=== PATIENT | female | born 1940 | race Caucasian/White ===

== ENCOUNTER → 2022-09-03 | Outpatient (CLI) | payer MEDICARE ==
--- NOTE | 2022-09-06 05:39 | PE ---
EXAMINATION TYPE: PET CT fusion skull to thigh DATE OF EXAM: 09/03/2022 COMPARISON: NONE HISTORY: Alzheimer's dementia. TECHNIQUE: Following the intravenous administration of 9.42 mCi of F-18 FDG, whole body images are p erformed of the entire head. Images are reviewed on the computer in the coronal, axial, and sagittal planes. Reconstructed rotating images are created on independent workstation and reviewed on the Dot[employer] mputer. Blood glucose level =100. SCAN: Initial Scan FINDINGS: Head: Symmetric diminished radiotracer uptake involving the bilateral temporal lobes with additional slight diminished radiotracer uptake involving right frontal lobe. IMPRESSION: Findings could be product of Alzheimer's dementia but no significant diminished radiotrac er uptake in the parietal lobes is seen. Frontotemporal dementia is in the differential.
== END | disposition home or self-care (01) ==
LOC: RADPETMAIN 07:58
PROVIDERS: ATTEND Internal Medicine
DX: G30.9 Alzheimer's disease, unspecified (principal); F02.80 Dementia in other diseases classified elsewhere, unspecified severity, without behavioral disturbance, psychotic disturbance, mood disturbance, and anxiety
CPT/HCPCS: 78815; A9552

== ENCOUNTER → 2022-10-06 | Outpatient (CLI) | payer MEDICARE ==
--- NOTE | 2022-10-07 20:02 | BD ---
EXAMINATION TYPE: Axial Bone Density DATE OF EXAM: 10/06/2022 CLINICAL HISTORY: 82 years old Female. ICD-10 CODE: M85.851 OSTEOPENIA Height: 57 in Weight: 112 lbs FRAX RISK QUESTIONS: History of Fracture in Adulthood: rt humerus age 20; rt foot age 20; lt patella age 26; rt wrist age 41 RISK FACTORS HISTORY OF: History of Wrist Fracture: yes rt wrist When: age 41 Active: yes Postmenopausal woman: age 57 Lost more than 2 inches in height since high school: 3 3'4 " MEDICATIONS: Additional Medications: vit d, blood pressure meds, EXAM MEASUREMENTS: Bone mineral densitometry was performed using the [employer]uberance System. Bone mineral density as measured about the Lumbar spine is: ----- L1-L4(G/cm2): 1.030 T Score Values are as follows: ----- L1: -2.0 ----- L2: -1.8 ----- L3: -1.0 ----- L4: -0.7 ----- L1-L4: -1.3 Z Score Values are as follows: ----- L1: 0.4 ----- L2: 0.5 ----- L3: 1.3 ----- L4: 1.7 ----- L1-L4: 1.1 Bone mineral density baseline Bone mineral density about the R hip (g/cm2): 0.689 Bone mineral density about the L hip (g/cm2): 0.701 T Score values are as follows: -----R Neck: -1.7 -----L Neck: -2.2 -----R Total: -2.5 -----L Total: -2.4 Z Score values are as follows: -----R Neck: 0.8 -----L Neck: 0.3 -----R Total: -0.1 -----L Total: 0.0 Bone mineral density baseline FRAX%s: The graph provided illustrates a 23.8% chance for a major osteoporotic fx and a 7.2% chance f or the hips probability for fx in 10 years time. IMPRESSION: Osteoporosis (T Score less than -2.5). There is increased fracture risk and therapy is usually indicated based on age. Re-Screen 1-2 years. NOTE: T-SCORE=SD OF THE YOUNG ADULT MEAN.
--- NOTE | 2022-10-07 21:09 | MM ---
Reason for Exam: Screening (asymptomatic). Patient History: Menarche at age 12. First Full-Term at age 19. Postmenopausal. Risk Values: Suzy 5 year model risk: 1.3%. NCI Lifetime model risk: 1.8%. Tissue Density: The breast tissue is heterogeneously dense. This may lower the sensitivity of mammography. Findings: Analyzed By CAD. Benign bilateral oil cyst calcifications. There is no suspicious group of microcalcifications or new suspicious mass in either breast. Overall Assessment: Benign, BI-RAD 2 Management: Screening Mammogram of both breasts in 1 year. . Patient should continue monthly self-breast exams. A clinical breast exam by your physician is recommended on an annual basis. This exam should not preclude additional follow-up of suspicious palpable abnormalities. Note on Suzy scores and lifetime risk: 1. A Suzy score greater than 3% is considered moderate risk. If this is the case, consider specialist referral to assess eligibility for a risk reducing agent. 2. If overall lifetime risk for the development of breast cancer is 20% or higher, the patient may qualify for future screening with alternating mammogram and breast MRI. Electronically signed and approved by: Zayra Logan M.D. Radiologist
== END | disposition home or self-care (01) ==
LOC: RADBDWWP 15:00
PROVIDERS: ATTEND Internal Medicine
DX: Z12.31 Encounter for screening mammogram for malignant neoplasm of breast (principal); M81.0 Age-related osteoporosis without current pathological fracture; M85.89 Other specified disorders of bone density and structure, multiple sites; Z78.0 Asymptomatic menopausal state
CPT/HCPCS: 77063; 77067; 77080

== ENCOUNTER 2023-05-03 11:44 | Emergency (ER) | payer MEDICARE ==
[2023-05-03 12:30] LABS: Basophils % (A) 0 %; Eosinophils # (A) 0.1 k/uL (0-0.7); Eosinophils % (A) 1 %; HCT 37.6 % (34.0-46.0); HGB 12.4 gm/dL (11.4-16.0); Lymphocytes # (A) 1.3 k/uL (1.0-4.8); Lymphocytes % (A) 17 %; MCH 30.4 pg (25.0-35.0); MCHC 32.8 g/dL (31.0-37.0); MCV 92.7 fL (80.0-100.0); Mean Platelet Volume 7.7; Monocytes # (A) 0.4 k/uL (0-1.0); Monocytes % (A) 5 %; Neutrophils # (A) 5.8 k/uL (1.3-7.7); Neutrophils % (A) 76 %; Platelet Count 203 k/uL (150-450); RBC 4.06 m/uL (3.80-5.40); RDW 13.3 % (11.5-15.5); WBC 7.7 k/uL (3.8-10.6)
[2023-05-03 12:39] LABS: Partial Thromboplastin Time 24.3 sec (22.0-30.0); Prothrombin Time 10.6 sec (10.0-12.5)
--- NOTE | 2023-05-03 12:53 | ED ---
Recheck HPI - General Chief Complaint: Recheck/Abnormal Lab/Rx Stated Complaint: HTN Time Seen by Provider: 05/03/23 12:25 Source: patient, RN notes reviewed, old records reviewed, Caregiver Mode of arrival: ambulatory Limitations: no limitations - History of Present Illness Initial Comments: This is a 82-year-old female to the emergency department for evaluation of weakness otherwise not feeling well. Patient is a poor historian but states that she has hasn't been feeling well or feeling herself lately she is taking medication as prescribed a blood pressures been elevated. No headache chest pain shortness breath or abdominal pain no other significant findings prior to arrival. Patient is recent fever or illness no travel history or sick contacts MD Complaint: other -: days(s) Returns Today for: persistent/worsening pain related to initial visit Symptoms Since Prior Visit: worsening pain Associated Symptoms: none Treatments Prior to Arrival: other (0) - Related Data Home Medications Medication Instructions Recorded Confirmed Multivitamins, Thera [Multivitamin 1 tab PO BID 03/02/16 05/13/23 (formulary)] Aspirin [Catahoula Aspirin EC] 81 mg PO DAILY 05/13/23 05/13/23 Atorvastatin [Lipitor] 20 mg PO DAILY 05/13/23 05/13/23 Calcium Carbonate [Calcium] 600 mg PO DAILY 05/13/23 05/13/23 Cholecalciferol [Vitamin D3 (25 25 mcg PO DAILY 05/13/23 05/13/23 Mcg = 1000 Iu)] Cyanocobalamin (Vitamin B-12) 1,000 mcg PO DAILY 05/13/23 05/13/23 [Vitamin B-12] Ginkgo Biloba [place] Extract [Ginkgo 125 mg PO DAILY 05/13/23 05/13/23 Biloba] Previous Rx's Medication Instructions Recorded amLODIPine [Norvasc] 5 mg PO DAILY #30 tab 05/14/23 Allergies Allergy/AdvReac Type Severity Reaction Status Date / Time ciprofloxacin [From Cipro] AdvReac Possibly Verified 05/13/23 13:40 SJS levofloxacin [From Levaquin] AdvReac Possibly Verified 05/13/23 13:40 SJS Sulfa (Sulfonamide AdvReac Possibly Verified 05/13/23 13:40 Antibiotics) SJS Review of Systems ROS Statement: Those systems with pertinent positive or pertinent negative responses have been documented in the HPI. ROS Other: All systems not noted in ROS Statement are negative. Past Medical History Past Medical History: Diabetes Mellitus, Hypertension, Mitral Valve Prolapse (M SUGAR CANE GROWER) Additional Past Medical History / Comment(s): glaucoma, rheumatic fever History of Any Multi-Drug Resistant Organisms: None Reported Past Surgical History: Tubal Ligation Past Psychological History: No Psychological Hx Reported Smoking Status: Never smoker Past Alcohol Use History: Occasional Past Drug Use History: None Reported General Exam Limitations: no limitations General appearance: alert, in no apparent distress, anxious Head exam: Present: atraumatic, normocephalic, normal inspection Eye exam: Present: normal appearance, PERRL, EOMI. Absent: scleral icterus, conjunctival injection, periorbital swelling ENT exam: Present: normal exam, mucous membranes moist Neck exam: Present: normal inspection. Absent: tenderness, meningismus, lymphadenopathy Respiratory exam: Present: normal lung sounds bilaterally. Absent: respiratory distress, wheezes, rales, rhonchi, stridor Cardiovascular Exam: Present: regular rate, normal rhythm, normal heart sounds. Absent: systolic murmur, diastolic murmur, rubs, gallop, clicks GI/Abdominal exam: Present: soft, normal bowel sounds. Absent: distended, tenderness, guarding, rebound, rigid Extremities exam: Present: normal inspection, full ROM, normal capillary refill. Absent: tenderness, pedal edema, joint swelling, calf tenderness Back exam: Present: normal inspection Neurological exam: Present: alert, oriented X3, CN II-XII intact Psychiatric exam: Present: normal affect, normal mood Skin exam: Present: warm, dry, intact, normal color. Absent: rash Course Vital Signs 05/03/23 05/03/23 05/03/23 11:53 13:27 15:05 Temperature 98 F 98.1 F Pulse Rate 67 69 73 Respiratory 20 16 16 Rate Blood Pressure 190/67 192/89 166/88 O2 Sat by Pulse 97 98 97 Oximetry - Reevaluation(s) Reevaluation #1: Medical records reviewed Reevaluation #2: Patient symptoms are unchanged Reevaluation #3: Patient informed results and questions answered Reevaluation #4: Was pt. sent in by a medical professional or institution (, PA, LACE PAPER MACHINE OPERATOR, urgent care, hospital, or penitentiary...) When possible be specific @ -no Did you speak to anyone other than the patient for history (EMS, parent, family, police, friend...)? What history was obtained from this source @ -no Did you review nursing and triage notes (agree or disagree)? Why? @ -agree Are old charts reviewed (outside hosp., previous admission, EMS record, old EKG, old radiological studies, urgent care reports/EKG's, penitentiary records)? Report findings @ -yes Differential Diagnosis (chest pain, altered mental status, abdominal pain women, abdominal pain men, vaginal bleeding, weakness, fever, dyspnea, syncope, headache, dizziness, GI bleed, back pain, seizure, CVA, palpatations, mental health, musculoskeletal)? @ -prior EKG interpreted by me (3pts min.). @ -yes X-rays interpreted by me (1pt min.). @ -no CT interpreted by me (1pt min.). @ -no U/S interpreted by me (1pt. min.). @ -no What testing was considered but not performed or refused? (CT, X-rays, U/S, labs)? Why? @ -none What meds were considered but not given or refused? Why? @ -none Did you discuss the management of the patient with other professionals (professionals i.e. , PA, LACE PAPER MACHINE OPERATOR, lab, RT, psych nurse, nursing home social worker, behaviorist, teacher, aoc operations intelligence officer, director of casework services)? Give summary @ -no Was smoking cessation discussed for >3mins.? @ -no Was critical care preformed (if so, how long)? @ -no Were there social determinants of health that impacted care today? How? (Homelessness, low income, unemployed, alcoholism, drug addiction, transportation, low edu. Level, literacy, decrease access to med. care, [facility], rehab)? @ -none Was there de-escalation of care discussed even if they declined (Discuss DNR or withdrawal of care, Hospice)? DNR status @ -no What co-morbidities impacted this encounter? (DM, HTN, Smoking, COPD, CAD, Cancer, CVA, ARF, Chemo, Hep., AIDS, mental health diagnosis, sleep apnea, morbid obesity)? @ -none Was patient admitted / discharged? Hospital course, mention meds given and route, prescriptions, significant lab abnormalities, going to OR and other pertinent info. @ - 82 female to the emergency department for evaluation of severe weakness and noted to have elevated blood pressure. Patient blood pressures improved here in the ER is in no acute distress and can be discharged home Discharge Undiagnosed new problem with uncertain prognosis? @ -no Drug Therapy requiring intensive monitoring for toxicity (Heparin, Nitro, Insulin, Cardizem)? @ -no Were any procedures done? @ -no Diagnosis/symptom? @ -Weakness and hypertension Acute, or Chronic, or Acute on Chronic? @ -Acute Uncomplicated (without systemic symptoms) or Complicated (systemic symptoms)? @ -Complicated Side effects of treatment? @ -no Exacerbation, Progression, or Severe Exacerbation? @ -exacerbation Poses a threat to life or bodily function? How? (Chest pain, USA, IL, pneumonia, PE, COPD, DKA, ARF, appy, cholecystitis, CVA, Diverticulitis, Homicidal, Suicida l, threat to staff... and all critical care pts) @ -yes significant extremity H Reevaluation #5: Differential Weakness: Hypoglycemia, shock, sepsis, hyponatremia, anemia, infection, IL, ETOH, adverse medicine reaction, overdose, stroke, this is not meant to be an all-inclusive list. Medical Decision Making - Medical Decision Making 82 female to the emergency department for evaluation of severe weakness and noted to have elevated blood pressure. Patient blood pressures improved here in the ER is in no acute distress and can be discharged home - Lab Data Result diagrams: 05/03/23 12:27 05/03/23 12:27 Lab Results 05/03/23 05/03/23 05/03/23 Range/Units 12:27 12:27 12:27 WBC 7.7 (3.8-10.6) k/uL RBC 4.06 (3.80-5.40) m/uL Hgb 12.4 (11.4-16.0) gm/dL Hct 37.6 (34.0-46.0) % MCV 92.7 (80.0-100.0) fL MCH 30.4 (25.0-35.0) pg MCHC 32.8 (31.0-37.0) g/dL RDW 13.3 (11.5-15.5) % Plt Count 203 (150-450) k/uL MPV 7.7 Neutrophils % 76 % Lymphocytes % 17 % Monocytes % 5 % Eosinophils % 1 % Basophils % 0 % Neutrophils # 5.8 (1.3-7.7) k/uL Lymphocytes # 1.3 (1.0-4.8) k/uL Monocytes # 0.4 (0-1.0) k/uL Eosinophils # 0.1 (0-0.7) k/uL Basophils # 0.0 (0-0.2) k/uL PT 10.6 (10.0-12.5) sec INR 1.0 (<1.2) APTT 24.3 (22.0-30.0) sec Sodium 141 (137-145) mmol/L Potassium 4.2 (3.5-5.1) mmol/L Chloride 105 (98-107) mmol/L Carbon Dioxide 26 (22-30) mmol/L Anion Gap 10 mmol/L BUN 26 H (7-17) mg/dL Creatinine 0.63 (0.52-1.04) mg/dL Est GFR (CKD-EPI)AfAm >90 (>60 ml/min/1.73 sqM) Est GFR (CKD-EPI)NonAf 84 (>60 ml/min/1.73 sqM) Glucose 118 H (74-99) mg/dL Calcium 9.6 (8.4-10.2) mg/dL Phosphorus 3.8 (2.5-4.5) mg/dL Magnesium 2.1 (1.6-2.3) mg/dL Total Bilirubin 0.5 (0.2-1.3) mg/dL AST 26 (14-36) U/L ALT 16 (4-34) U/L Alkaline Phosphatase 52 (38-126) U/L Troponin I (0.000-0.034) ng/mL NT-Pro-B Natriuret Pep 187 pg/mL Total Protein 6.4 (6.3-8.2) g/dL Albumin 3.8 (3.5-5.0) g/dL TSH 1.110 (0.465-4.680) mIU/L 05/03/23 Range/Units 12:27 WBC (3.8-10.6) k/uL RBC (3.80-5.40) m/uL Hgb (11.4-16.0) gm/dL Hct (34.0-46.0) % MCV (80.0-100.0) fL MCH (25.0-35.0) pg MCHC (31.0-37.0) g/dL RDW (11.5-15.5) % Plt Count (150-450) k/uL MPV Neutrophils % % Lymphocytes % % Monocytes % % Eosinophils % % Basophils % % Neutrophils # (1.3-7.7) k/uL Lymphocytes # (1.0-4.8) k/uL Monocytes # (0-1.0) k/uL Eosinophils # (0-0.7) k/uL Basophils # (0-0.2) k/uL PT (10.0-12.5) sec INR (<1.2) APTT (22.0-30.0) sec Sodium (137-145) mmol/L Potassium (3.5-5.1) mmol/L Chloride (98-107) mmol/L Carbon Dioxide (22-30) mmol/L Anion Gap mmol/L BUN (7-17) mg/dL Creatinine (0.52-1.04) mg/dL Est GFR (CKD-EPI)AfAm (>60 ml/min/1.73 sqM) Est GFR (CKD-EPI)NonAf (>60 ml/min/1.73 sqM) Glucose (74-99) mg/dL Calcium (8.4-10.2) mg/dL Phosphorus (2.5-4.5) mg/dL Magnesium (1.6-2.3) mg/dL Total Bilirubin (0.2-1.3) mg/dL AST (14-36) U/L ALT (4-34) U/L Alkaline Phosphatase (38-126) U/L Troponin I <0.012 (0.000-0.034) ng/mL NT-Pro-B Natriuret Pep pg/mL Total Protein (6.3-8.2) g/dL Albumin (3.5-5.0) g/dL TSH (0.465-4.680) mIU/L - EKG Data -: EKG Interpreted by Me (EKG shows sinus 65 KS 156 QRS 84 QTc 404) Disposition Clinical Impression: Weakness, Hypertension Disposition: HOME SELF-CARE Condition: Good Instructions (If sedation given, give patient instructions): Weakness (ED), Hypertension (ED) Is patient prescribed a controlled substance at d/c from ED?: No Referrals: Baltazar Greenberg MD [Primary Care Provider] - 1-2 days Time of Disposition: 14:10
[2023-05-03 12:58] LABS: ALT 16 U/L (4-34); AST 26 U/L (14-36); African American GFR (CKD) >90 (>60 ml/min/1.73 sqM); Albumin 3.8 g/dL (3.5-5.0); Alkaline Phosphatase 52 U/L (38-126); Anion Gap 10 mmol/L; Blood Urea Nitrogen 26 mg/dL (7-17); Calcium 9.6 mg/dL (8.4-10.2); Carbon Dioxide 26 mmol/L (22-30); Chloride 105 mmol/L (98-107); Glucose 118 mg/dL (74-99); Magnesium 2.1 mg/dL (1.6-2.3); Non-African American GFR(CKD) 84 (>60 ml/min/1.73 sqM); Phosphorus 3.8 mg/dL (2.5-4.5); Potassium 4.2 mmol/L (3.5-5.1); Sodium 141 mmol/L (137-145); Total Bilirubin 0.5 mg/dL (0.2-1.3); Total Protein 6.4 g/dL (6.3-8.2)
[2023-05-03 13:05] LABS: NT-Pro-B-Type Natriuretic Pept 187 pg/mL
[2023-05-03 13:39] VITALS: RESP 16; TEMP 98.1
[2023-05-03] MEDS ORDERED: LABETALOL 5 MG/ML VIAL MDV IVP STA (14:13)
[2023-05-03 20:15] VITALS: BP 166/88; PULSE 73
== END 2023-05-03 15:05 | disposition home or self-care (01) ==
LOC: EC 11:44
DX: I10 Essential (primary) hypertension (principal); R53.1 Weakness; E11.9 Type 2 diabetes mellitus without complications; Z79.82 Long term (current) use of aspirin; Z88.1 Allergy status to other antibiotic agents; Z88.2 Allergy status to sulfonamides
CPT/HCPCS: 36415; 93005; 83880; 80053; 83735; 84100; 84443; 84484; 85025; 85610; 85730; 99284; 96374; J1920

== ENCOUNTER 2023-05-13 09:56 | Observation (INO) | payer MEDICARE ==
--- NOTE | 2023-05-13 11:05 | ED ---
Dizziness HPI - General Chief Complaint: Dizziness Stated Complaint: Constipation Time Seen by Provider: 05/13/23 10:11 Source: patient, EMS Mode of arrival: EMS - History of Present Illness Initial Comments: 82-year-old female past medical history significant for TIA presenting to the emergency department with a chief complaint of lightheadedness. Per patient, was standing today when she noted that she felt generally fatigued. Due to this felt as if she needed to sit down. While sitting down patient reports that she started to ill as if she was going to pass out. Patient subsequently had an episode where she became less responsive. Per family, noted that she didn't was sitting there and was unable to speak. Also notes that patient seemed to have odd eye movements noting that they were "darting" back and fourth. Shortly, family noted that her smile on the left side was asymmetrical. Family noted that this episode lasted 5-10 minutes. Patient states following this episode had a bowel movement and started to feel markedly better. At this time, patient reports no symptoms. Per , her smile is now symmetric. Denied chest pain or shortness of breath currently or during this episode. No other complaints. - Related Data Home Medications Medication Instructions Recorded Confirmed Multivitamins, Thera [Multivitamin] 1 tab PO BID 03/02/16 05/13/23 Aspirin [[employer] Aspirin EC] 81 mg PO DAILY 05/13/23 05/13/23 Atorvastatin [Lipitor] 20 mg PO DAILY 05/13/23 05/13/23 Calcium Carbonate [Calcium] 600 mg PO DAILY 05/13/23 05/13/23 Cholecalciferol [Vitamin D3 (25 25 mcg PO DAILY 05/13/23 05/13/23 Mcg = 1000 Iu)] Cyanocobalamin (Vitamin B-12) 1,000 mcg PO DAILY 05/13/23 05/13/23 [Vitamin B-12] Ginkgo Biloba [place] Extract [Ginkgo 125 mg PO DAILY 05/13/23 05/13/23 Biloba] Losartan [Cozaar] 50 mg PO BID 05/13/23 05/13/23 Allergies Allergy/AdvReac Type Severity Reaction Status Date / Time ciprofloxacin [From Cipro] AdvReac Possibly Verified 05/13/23 13:40 SJS levofloxacin [From Levaquin] AdvReac Possibly Verified 05/13/23 13:40 SJS Sulfa (Sulfonamide AdvReac Possibly Verified 05/13/23 13:40 Antibiotics) SJS Review of Systems ROS Statement: Those systems with pertinent positive or pertinent negative responses have been documented in the HPI. ROS Other: All systems not noted in ROS Statement are negative. Past Medical History Past Medical History: Diabetes Mellitus, Hypertension, Mitral Valve Prolapse (MVP) Additional Past Medical History / Comment(s): glaucoma, rheumatic fever History of Any Multi-Drug Resistant Organisms: None Reported Past Surgical History: Tubal Ligation Past Psychological History: No Psychological Hx Reported Smoking Status: Never smoker Past Alcohol Use History: Occasional Past Drug Use History: None Reported General Exam General appearance: alert, in no apparent distress Eye exam: Present: normal appearance ENT exam: Present: normal exam Neck exam: Present: normal inspection Respiratory exam: Present: normal lung sounds bilaterally Cardiovascular Exam: Present: regular rate, normal rhythm GI/Abdominal exam: Present: soft Neurological exam: Present: alert, oriented X3, CN II-XII intact, other (Finger to nose, rapid alternating hand movements, [id number] intact. NIH SS 0) Skin exam: Present: warm, dry Course Vital Signs 05/13/23 05/13/23 05/13/23 10:21 10:24 11:47 Temperature 97.9 F Pulse Rate 56 L 64 Pulse Rate [ 66 Sitting] Pulse Rate [ 77 Standing] Pulse Rate [ 60 Supine] Respiratory 18 Rate Blood Pressure 144/81 145/85 Blood Pressure 144/87 [Sitting] Blood Pressure 144/83 [Standing] Blood Pressure 132/75 [Supine] O2 Sat by Pulse 99 97 Oximetry Medical Decision Making - Medical Decision Making Was pt. sent in by a medical professional or institution (, PA, NATURAL REMEDY CONSULTANT, urgent care, hospital, or skilled nursing...) When possible be specific @ -No Did you speak to anyone other than the patient for history (EMS, parent, family, police, friend...)? What history was obtained from this source @ -Spoke to family for parts of history. For further details please see HPI. Did you review nursing and triage notes (agree or disagree)? Why? @ -I reviewed and agree with nursing and triage notes Were old charts reviewed (outside hosp., previous admission, EMS record, old EKG, old radiological studies, urgent care reports/EKG's, skilled nursing records)? Report findings @ -No old charts were reviewed Differential Diagnosis (chest pain, altered mental status, abdominal pain women, abdominal pain men, vaginal bleeding, weakness, fever, dyspnea, syncope, headache, dizziness, GI bleed, back pain, seizure, CVA, palpatations, mental health, musculoskeletal)? @ -Differential Altered Mental Status: Hypoglycemia, DKA, hypercapnia, ETOH, overdose, CO poisoning, trauma, myxedema coma, HTN encephalopathy, infection, encephalitis, psychosis, intercranial hemorrhage, hepatic encephalopathy, meningitis, CVA, this is not meant to be an all-inclusive list EKG interpreted by me (3pts min.). @ -As above X-rays interpreted by me (1pt min.). @ -None done CT interpreted by me (1pt min.). @ -CT brain without contrast and CTA head and neck interpreted by me showing no evidence of acute finding. U/S interpreted by me (1pt. min.). @ -None done What testing was considered but not performed or refused? (CT, X-rays, U/S, labs)? Why? @ -None What meds were considered but not given or refused? Why? @ -None Did you discuss the management of the patient with other professionals (professionals i.e. , PA, NATURAL REMEDY CONSULTANT, lab, RT, psych nurse, social media designer, plumbing and heating contractor, teacher, morale officer, case maker)? Give summary @ -Spoke to [facility] [place] physician who accepted admission Was smoking cessation discussed for >3mins.? @ -No Was critical care preformed (if so, how long)? @ -No Were there social determinants of health that impacted care today? How? (Homelessness, low income, unemployed, alcoholism, drug addiction, transportation, low edu. Level, literacy, decrease access to med. care, senior living, rehab)? @ -No Was there de-escalation of care discussed even if they declined (Discuss DNR or withdrawal of care, Hospice)? DNR status @ -No What co-morbidities impacted this encounter? (DM, HTN, Smoking, COPD, CAD, Cancer, CVA, ARF, Chemo, Hep., AIDS, mental health diagnosis, sleep apnea, morb id obesity)? @ -None Was patient admitted / discharged? Hospital course, mention meds given and route, prescriptions, significant lab abnormalities, going to OR and other pertinent info. @ -Admission 82-year-old female presenting to the ED with 10 minute episode of decreased responsiveness and left facial droop. Upon evaluation in the ED no neuro deficits an NIH stroke scale of 0. Auditory studies reviewed and labs including CBC, CMP, UA, troponin, correlation studies unremarkable. CT brain without contrast and CTA head and neck revealed no acute process. Patient admitted to observation with consult to neurology for TIA/stroke workup. Discussed plan of care with patient and family who are in agreement. Undiagnosed new problem with uncertain prognosis? @ -No Drug Therapy requiring intensive monitoring for toxicity (Heparin, Nitro, Insulin, Cardizem)? @ -No Were any procedures done? @ -No Diagnosis/symptom? @ -Altered mental status Acute, or Chronic, or Acute on Chronic? @ -Acute Uncomplicated (without systemic symptoms) or Complicated (systemic symptoms)? @ -Uncomplicated Side effects of treatment? @ -No Exacerbation, Progression, or Severe Exacerbation? @ -No Poses a threat to life or bodily function? How? (Chest pain, USA, MA, pneumonia, PE, COPD, DKA, ARF, appy, cholecystitis, CVA, Diverticulitis, Homicidal, Suicidal, threat to staff... and all critical care pts) @ -No - Lab Data Result diagrams: 05/13/23 12:42 05/13/23 11:27 Lab Results 05/13/23 05/13/23 05/13/23 Range/Units 11:27 11:27 11:27 WBC (3.8-10.6) k/uL RBC (3.80-5.40) m/uL Hgb (11.4-16.0) gm/dL Hct (34.0-46.0) % MCV (80.0-100.0) fL MCH (25.0-35.0) pg MCHC (31.0-37.0) g/dL RDW (11.5-15.5) % Plt Count (150-450) k/uL MPV Neutrophils % % Lymphocytes % % Monocytes % % Eosinophils % % Basophils % % Neutrophils # (1.3-7.7) k/uL Lymphocytes # (1.0-4.8) k/uL Monocytes # (0-1.0) k/uL Eosinophils # (0-0.7) k/uL Basophils # (0-0.2) k/uL PT (10.0-12.5) sec INR (<1.2) APTT (22.0-30.0) sec Sodium 140 (137-145) mmol/L Potassium 5.6 H (3.5-5.1) mmol/L Chloride 105 (98-107) mmol/L Carbon Dioxide 24 (22-30) mmol/L Anion Gap 11 mmol/L BUN 24 H (7-17) mg/dL Creatinine 0.62 (0.52-1.04) mg/dL Est GFR (CKD-EPI)AfAm >90 (>60 ml/min/1.73 sqM) Est GFR (CKD-EPI)NonAf 85 (>60 ml/min/1.73 sqM) Glucose 102 H (74-99) mg/dL Plasma Lactic Acid Ryan 1.2 (0.7-2.0) mmol/L Calcium 9.2 (8.4-10.2) mg/dL Magnesium 2.2 (1.6-2.3) mg/dL Total Bilirubin 0.9 (0.2-1.3) mg/dL AST 47 H (14-36) U/L ALT 17 (4-34) U/L Alkaline Phosphatase 40 (38-126) U/L Troponin I (0.000-0.034) ng/mL Total Protein 6.9 (6.3-8.2) g/dL Albumin 4.0 (3.5-5.0) g/dL Urine Color Colorless Urine Appearance Clear (Clear) Urine pH 7.0 (5.0-8.0) Ur Specific [place] 1.021 (1.001-1.035) Urine Protein Negative (Negative) Urine Glucose (UA) Negative (Negative) Urine Ketones Negative (Negative) Urine Blood Negative (Negative) Urine Nitrite Negative (Negative) Urine Bilirubin Negative (Negative) Urine Urobilinogen <2.0 (<2.0) mg/dL Ur Leukocyte Esterase Negative (Negative) 05/13/23 05/13/23 05/13/23 Range/Units 11:27 12:42 12:42 WBC 8.0 (3.8-10.6) k/uL RBC 3.72 L (3.80-5.40) m/uL Hgb 11.3 L (11.4-16.0) gm/dL Hct 34.5 (34.0-46.0) % MCV 93.0 (80.0-100.0) fL MCH 30.4 (25.0-35.0) pg MCHC 32.7 (31.0-37.0) g/dL RDW 13.2 (11.5-15.5) % Plt Count 185 (150-450) k/uL MPV 8.2 Neutrophils % 82 % Lymphocytes % 12 % Monocytes % 4 % Eosinophils % 1 % Basophils % 0 % Neutrophils # 6.5 (1.3-7.7) k/uL Lymphocytes # 1.0 (1.0-4.8) k/uL Monocytes # 0.3 (0-1.0) k/uL Eosinophils # 0.0 (0-0.7) k/uL Basophils # 0.0 (0-0.2) k/uL PT 10.7 (10.0-12.5) sec INR 1.0 (<1.2) APTT 25.0 (22.0-30.0) sec Sodium (137-145) mmol/L Potassium (3.5-5.1) mmol/L Chloride (98-107) mmol/L Carbon Dioxide (22-30) mmol/L Anion Gap mmol/L BUN (7-17) mg/dL Creatinine (0.52-1.04) mg/dL Est GFR (CKD-EPI)AfAm (>60 ml/min/1.73 sqM) Est GFR (CKD-EPI)NonAf (>60 ml/min/1.73 sqM) Glucose (74-99) mg/dL Plasma Lactic Acid Ryan (0.7-2.0) mmol/L Calcium (8.4-10.2) mg/dL Magnesium (1.6-2.3) mg/dL Total Bilirubin (0.2-1.3) mg/dL AST (14-36) U/L ALT (4-34) U/L Alkaline Phosphatase (38-126) U/L Troponin I <0.012 (0.000-0.034) ng/mL Total Protein (6.3-8.2) g/dL Albumin (3.5-5.0) g/dL Urine Color Urine Appearance (Clear) Urine pH (5.0-8.0) Ur Specific [place] (1.001-1.035) Urine Protein (Negative) Urine Glucose (UA) (Negative) Urine Ketones (Negative) Urine Blood (Negative) Urine Nitrite (Negative) Urine Bilirubin (Negative) Urine Urobilinogen (<2.0) mg/dL Ur Leukocyte Esterase (Negative) - EKG Data EKG Comments: He shows a sinus rhythm at [address]-T wave changes. IL 158, QRS 81, QT/QTC 402/417. Disposition Clinical Impression: Altered mental state Disposition: ADMITTED IP TO THIS HOSP Condition: Good Referrals: Baltazar Greenberg MD [Primary Care Provider] - 1-2 days Time of Disposition: 16:31
[2023-05-13 12:21] LABS: ALT 17 U/L (4-34); AST 47 U/L (14-36); African American GFR (CKD) >90 (>60 ml/min/1.73 sqM); Alkaline Phosphatase 40 U/L (38-126); Anion Gap 11 mmol/L; Blood Urea Nitrogen 24 mg/dL (7-17); Calcium 9.2 mg/dL (8.4-10.2); Carbon Dioxide 24 mmol/L (22-30); Chloride 105 mmol/L (98-107); Glucose 102 mg/dL (74-99); Magnesium 2.2 mg/dL (1.6-2.3); Non-African American GFR(CKD) 85 (>60 ml/min/1.73 sqM); Sodium 140 mmol/L (137-145); Total Bilirubin 0.9 mg/dL (0.2-1.3); Total Protein 6.9 g/dL (6.3-8.2)
[2023-05-13 12:53] LABS: Basophils % (A) 0 %; Eosinophils % (A) 1 %; HCT 34.5 % (34.0-46.0); HGB 11.3 gm/dL (11.4-16.0); Lymphocytes % (A) 12 %; MCH 30.4 pg (25.0-35.0); MCHC 32.7 g/dL (31.0-37.0); Mean Platelet Volume 8.2; Monocytes # (A) 0.3 k/uL (0-1.0); Monocytes % (A) 4 %; Neutrophils # (A) 6.5 k/uL (1.3-7.7); Neutrophils % (A) 82 %; Platelet Count 185 k/uL (150-450); RBC 3.72 m/uL (3.80-5.40); RDW 13.2 % (11.5-15.5)
[2023-05-13 13:04] LABS: Potassium 5.6 mmol/L (3.5-5.1)
[2023-05-13 13:15] LABS: Prothrombin Time 10.7 sec (10.0-12.5)
[2023-05-13] MEDS ORDERED: SODIUM CHLORIDE 0.9% 1,000 ML IV STA (13:29)
--- NOTE | 2023-05-13 14:03 | CT ---
EXAMINATION TYPE: CT brain wo con DATE OF EXAM: 05/13/2023 COMPARISON: None HISTORY: near syncope, dysarthria CT DLP: 1107.6 mGycm Automated exposure control for dose reduction was used. FINDINGS: The ventricles, basal cisterns and sulci over the convexities are moderately enlarged consistent with moderate atrophy but appropriate for the patient's age. There is mild decreased density in the white matter consistent with mild chronic ischemic white matte r demyelination. No focal abnormal density is seen throughout the brain parenchyma. There is no acute intra or extra-a xial hemorrhage. The posterior fossa including the brainstem, fourth ventricle and cerebellar pontine angles appear gr ossly normal. The intraorbital contents appear normal and symmetric Visualized paranasal sinuses and mastoid air cells are well aerated. The calvarium is intact. IMPRESSION: 1. No acute bleed or mass effect. 2. Age-appropriate atrophy and mild chronic ischemic white matter demyelination. IMPRESSION:
--- NOTE | 2023-05-13 14:17 | CT ---
EXAMINATION TYPE: CT angio head neck CT DLP: 325.6 mGycm, Automated exposure control for dose reduction was used. DATE OF EXAM: 05/13/2023 2:01 PM COMPARISON: Same day CT brain.. CLINICAL INDICATION:Female, 82 years old with history of near syncope, dysarthria; PHH, near syncope, dysarthria TECHNIQUE: Axially acquired helical CT angiogram of the head and neck was obtained with contrast. Axi al images are supplemented with 3D reconstructions and MIP images which were post-processed at an in dependent workstation. NASCET criteria used. Contrast used:70ml mL of Isovue 300 with IV Contrast, Oral contrast used: None. FINDINGS: CTA HEAD: No evidence of acute intracranial hemorrhage, mass effect, or midline shift. The ventricles, sulci, a nd cisterns are unremarkable. The visualized portions of the internal carotid arteries, middle cerebral arteries, anterior cerebral arteries, and posterior cerebral arteries are patent. Atherosclerosis of the carotid siphons bilater ally. The basilar and vertebral arteries are patent. CTA NECK: Right Carotid System: The common carotid and external carotid arteries are patent. There is less than 25% stenosis at the c arotid bifurcation secondary to calcified/noncalcified plaque. The rest of the internal carotid arter y is patent. Left Carotid System: The common carotid and external carotid arteries are patent. There is less than 25% stenosis at the c arotid bifurcation secondary to calcified/noncalcified plaque. The rest of the internal carotid arter y is patent. Vertebral arteries are patent without evidence hemodynamically significant stenosis. There is a 2-vessel aortic arch. The origins of the great vessels are patent. No evidence of hemodyna mically significant stenosis. Upper thorax: Partially calcified lymph nodes in the mediastinum. IMPRESSION: 1. No evidence of dissection of the cervical internal carotid arteries or vertebral arteries or any e vidence of significant stenosis at the carotid bifurcations. 2. No evidence of intracranial high-grade stenosis or intracranial aneurysm.
[2023-05-13 15:19] LABS: Appearance,Urine Clear (Clear); Bilirubin,Urine Negative (Negative); Blood,Urine Negative (Negative); Color,Urine Colorless; Glucose,Urine (UA) Negative (Negative); Ketones,Urine Negative (Negative); Leukocyte Esterase,Urine Negative (Negative); Nitrite,Urine Negative (Negative); Protein,Urine Negative (Negative); Specific Gravity,Urine 1.021 (1.001-1.035); Urobilinogen,Urine <2.0 mg/dL (<2.0)
[2023-05-13] MEDS ORDERED: ONDANSETRON 4 MG/2 ML VIAL IVP PRN (16:17)
[2023-05-13] MEDS ORDERED: HYDROmorphone 0.5 MG/0.5 ML SYRINGE IVP PRN (16:17)
[2023-05-13] MEDS ORDERED: HYDROmorphone 1 MG/ML 1 ML SYRINGE IVP PRN (16:17)
[2023-05-13] MEDS ORDERED: NALOXONE 0.4 MG/ML 1 ML VIAL IV PRN (16:17)
[2023-05-13] MEDS: SODIUM CHLORIDE 0.9% 1,000 ML IV SCH (16:38)
--- NOTE | 2023-05-13 18:17 | P.CNNES ---
History of Present Illness Consult date: 04/23/23 Requesting physician: Yoel Robertson Reason for Consult: R/O TIA vs CVA History of Present Illness: This is an 82-year-old woman who presented emergency department because of confusion, facial weakness. History is obtained from the patient daughter was at bedside. 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 According to the daughter she did not lose consciousness but was "out of it". Was reported that she had left facial weakness. She also was confused and not making sense according to the daughter. The whole episode lasted 5-10 minutes. There is no jerk in of any extremities no foaming around the mouth. No prior episode like this before. No focal weakness other than the facial weakness. On patient has a remote TIA and she is on aspirin 81 mg daily. This seems the patient is on Lipitor 20 mg daily. She has borderline diabetes. She does have underlying hypertension and her blood pressure. Patient does not have any history of seizures. No history of primary cancer or brain metastases. 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 Christian give her that diagnosis. Some of the workup during his hospital visit consisted of: Initial serum glucose is 102, plasma lactic acid venous is 1.2, calcium, magnesium and sodium are within normal limits. CT of the head is reported as no acute bleed or mass effect. Age appropriate atrophy and mild chronic ischemic white matter demyelination. I personally reviewed the CT of the head and I agree there is no acute subacute ischemia. There is no bleed. CT angiography of the head and neck was reported as no evidence of dissection of cervical internal carotid artery or vertebral artery or any evidence of significant stenosis at the carotid bifurcation. No evidence of intracranial high-grade stenosis or intracranial aneurysm. EKG is reported as sinus rhythm with sinus arrhythmia. Per the ED team NIH stroke scale was a 0 Review of Systems Review of system: The 12 point system was reviewed and apparent positive and negative per HPI. Past Medical History Past Medical History: Diabetes Mellitus, Hypertension, Mitral Valve Prolapse (MVP) Additional Past Medical History / Comment(s): glaucoma, rheumatic fever History of Any Multi-Drug Resistant Organisms: None Reported Past Surgical History: Tubal Ligation Past Psychological History: No Psychological Hx Reported Smoking Status: Never smoker Past Alcohol Use History: Occasional Past Drug Use History: None Reported Medications and Allergies Home Medications Medication Instructions Recorded Confirmed Type Multivitamins, Thera [Multivitamin] 1 tab PO BID 03/02/16 05/13/23 History Aspirin [[place] Aspirin EC] 81 mg PO DAILY 05/13/23 05/13/23 History Atorvastatin [Lipitor] 20 mg PO DAILY 05/13/23 05/13/23 History Calcium Carbonate [Calcium] 600 mg PO DAILY 05/13/23 05/13/23 History Cholecalciferol [Vitamin D3 (25 25 mcg PO DAILY 05/13/23 05/13/23 History Mcg = 1000 Iu)] Cyanocobalamin (Vitamin B-12) 1,000 mcg PO DAILY 05/13/23 05/13/23 History [Vitamin B-12] Ginkgo Biloba [place] Extract [Ginkgo 125 mg PO DAILY 05/13/23 05/13/23 History Biloba] Losartan [Cozaar] 50 mg PO BID 05/13/23 05/13/23 History Allergies Allergy/AdvReac Type Severity Reaction Status Date / Time ciprofloxacin [From Cipro] AdvReac Possibly Verified 05/13/23 13:40 SJS levofloxacin [From Levaquin] AdvReac Possibly Verified 05/13/23 13:40 SJS Sulfa (Sulfonamide AdvReac Possibly Verified 05/13/23 13:40 Antibiotics) SJS Physical Examination - Vital Signs Vital Signs: Vital Signs Temp Pulse Pulse Pulse Pulse Resp BP 05/13/23 16:39 70 18 181/74 05/13/23 11:47 64 145/85 05/13/23 10:24 66 77 60 05/13/23 10:21 97.9 F 56 L 18 144/81 BP BP BP Pulse Ox 05/13/23 16:39 97 05/13/23 11:47 97 05/13/23 10:24 144/87 144/83 132/75 05/13/23 10:21 99 Intake and Output 05/13/23 05/13/23 05/13/23 06:59 14:59 22:59 Other: Weight 54.431 kg GENERAL: The patient is lying in bed and is not in acute distress. NEUROLOGICAL: Higher mental function: The patient is awake, alert, oriented to self, place but for month she stated it was March and for year she stated two different incorrect answers (per daughter, this is baseline). Patient is following co mmands. No aphasia and no neglect. Cranial nerves: The pupils are round, equal and reactive to light and accommodation. Visual mendoza are full to confrontation throughout. Extraocular movement is intact no nystagmus is noted. Facial sensation is normal to touch throughout. The facial strength is normal throughout. Hearing is moderately decreasedl bilaterally to hand rub. Tongue is midline and moved [id number] without any difficulty. No dysarthria is noted. Shoulder shrug is normal neema aterally. Motor: The strength is 5 over 5 throughout. Normal tone and bulk. Cerebellum: Normal finger to nose bilaterally. Sensation: Sensation is normal to touch throughout. Reflexes (right/left): 2+ throughout Plantars are mute bilaterally. Results - Laboratory Findings CBC and BMP: 05/13/23 12:42 05/13/23 11:27 Abnormal Lab Findings: Abnormal Labs 05/13/23 05/13/23 11:27 12:42 RBC 3.72 L Hgb 11.3 L Potassium 5.6 H BUN 24 H Glucose 102 H AST 47 H Assessment and Plan Assessment: This is an 82-year-old woman who presented emergency department because of episode of confusion at home. While at home she said down since was not feeling well and was slumped down her eyes were open and were moving [id number] and she had left facial weakness and was confused. The episode lasted 5-10 minutes. No urinary or bowel incontinence or no jerk in of any extremities. Transient episode of confusion over the eyes and facial asymmetry. I an concern about a seizure. Cannot rule TIA but feel low on differential. History of remote TIA in the past History of mild Alzheimer's (see's Dr. Christian--neurologist) Hypertension Borderline DM Plan: I ordered MRI the brain with and without urgently. I'll hold off starting antiepileptic drugs since the her seizure is suspected and not confirmed and even if it is a seizure this is a first episode. We'll start the patient has another episode of suspected seizure or if any images reveals increased risk for seizures. I ordered a routine EEG and the techs will not be available until this coming-up Tuesday. If patient is stable and all workup is negative other than the EEG is not completed can be obtained as an outpatient. I ordered 2-D echo, the panel, TSH, vitamin B12, folate, ammonia level I resumed her home dose of aspirin and started on Lipitor 40 mg daily at bedtime for seconds to her prophylaxis Continue neuro checks Cardiac monitoring Consulted PT and OT We'll defer the rest of the medical management to primary team For DVT prophylaxis she patient on subcu heparin Upon discharge the patient will follow up with her neurologist as an outpatient Dr. Christian and has a coming up appointment towards the end of next month. The the daughter will was seek any cancellation appointments for closer appointment. Plan was discussed with the patient, her daughters and who are at bedside. Thank you for the consultation Time with Patient: Greater than 30
[2023-05-13] MEDS: amLODIPine 5 MG TAB PO SCH (18:53)
[2023-05-13] MEDS: HEPARIN SODIUM,PORCINE 5,000 UNIT/ML 1 ML VIAL SQ SCH (20:48)
[2023-05-13] MEDS: MULTIVITAMINS, THERA 1 EACH TAB PO SCH (20:48)
[2023-05-13] MEDS ORDERED: ATORVASTATIN 40 MG TAB PO SCH (21:00)
[2023-05-14 02:57] LABS: Chol/HDL Ratio 1.89 Ratio; LDL Cholesterol,Calculated 43.1 mg/dL (0.0-131.0); VLDL Calculation 9.98 mg/dL (5.00-40.00)
[2023-05-14] MEDS: SODIUM CHLORIDE 0.9% 1,000 ML IV SCH (05:47)
[2023-05-14] MEDS: HEPARIN SODIUM,PORCINE 5,000 UNIT/ML 1 ML VIAL SQ SCH (08:39)
[2023-05-14] MEDS: MULTIVITAMINS, THERA 1 EACH TAB PO SCH (08:39)
[2023-05-14] MEDS: amLODIPine 5 MG TAB PO SCH (08:49)
[2023-05-14 08:51] VITALS: BP 139/74; PULSE 67; RESP 17; TEMP 98.8
[2023-05-14] MEDS ORDERED: ATORVASTATIN 20 MG TAB PO SCH (09:00)
[2023-05-14] MEDS ORDERED: CALCIUM CARBONATE 500 MG CHEWABLE PO SCH (09:00)
[2023-05-14] MEDS ORDERED: ASPIRIN 81 MG PO SCH ×2 (09:00)
[2023-05-14] MEDS ORDERED: CHOLECALCIFEROL 25 MCG (1000 IU) TABLET PO SCH (09:00)
[2023-05-14] MEDS ORDERED: CYANOCOBALAMIN 500 MCG TAB PO SCH (09:00)
[2023-05-14 10:03] LABS: BUN/Creat Ratio 20.57 Ratio (12.00-20.00); Blood Urea Nitrogen 14.4 mg/dL (9.0-27.0); Calcium 8.8 mg/dL (8.7-10.3); Carbon Dioxide 24.5 mmol/L (21.6-31.8); Chloride 109 mmol/L (96-109); Glucose 93 mg/dL (70-110); Potassium 4.3 mmol/L (3.5-5.5); Sodium 143 mmol/L (135-145)
--- NOTE | 2023-05-14 11:58 | P.PN ---
Subjective Progress Note Date: 05/14/23 I am following-up with patient and she feels she is doing well and further neurological issues. She is accompanied by her son. Objective - Vital Signs Vital signs: Vital Signs Temp 98.8 F 05/14/23 07:40 Pulse 67 05/14/23 07:40 Resp 17 05/14/23 07:40 BP 139/74 05/14/23 07:40 Pulse Ox 99 05/14/23 07:40 FiO2 Intake & Output 05/13/23 05/14/23 05/14/23 18:59 06:59 18:59 Weight 54.431 kg Other: Voiding Method Toilet Toilet # Voids 2 - Exam GENERAL: The patient is lying in bed and is not in acute distress. NEUROLOGICAL: Higher mental function: The patient is awake, alert, oriented to self, place and time. Patient is following commands. No aphasia and no neglect. Cranial nerves: The pupils are round, equal and reactive to light and accommodation. Visual mendoza are full to confrontation throughout. Extraocular movement is intact no nystagmus is noted. Facial sensation is normal to touch throughout. The facial strength is normal throughout. Hearing is moderately decreasedl bilaterally to hand rub. Tongue is midline and moved [id number] without any difficulty. No dysarthria is noted. Shoulder shrug is normal bilaterally. Motor: The strength is 5 over 5 throughout. Normal tone and bulk. Cerebellum: Normal finger to nose bilaterally. Sensation: Sensation is normal to touch throughout. Reflexes (right/left): 2+ throughout Plantars are mute bilaterally. Some of the workup during his hospital visit consisted of: Initial serum glucose is 102, plasma lactic acid venous is 1.2, calcium, magnesium and sodium are within normal limits. Lipid panel: TG 49, Cholestrol 113, LDL 43, HDL 59 Vitamin B12: 1197 Folate 40 TSH: 1.050 Ammonia <9 CT of the head is reported as no acute bleed or mass effect. Age appropriate atrophy and mild chronic ischemic white matter demyelination. I personally reviewed the CT of the head and I agree there is no acute subacute ischemia. There is no bleed. CT angiography of the head and neck was reported as no evidence of dissection of cervical internal carotid artery or vertebral artery or any evidence of significant stenosis at the carotid bifurcation. No evidence of intracranial high-grade stenosis or intracranial aneurysm. EKG is reported as sinus rhythm with sinus arrhythmia. - Labs CBC & Chem 7: 05/13/23 12:42 05/14/23 03:54 Labs: Abnormal Lab Results - Last 24 Hours (Table) 05/13/23 05/13/23 05/13/23 Range/Units 11:27 12:42 18:11 RBC 3.72 L (3.80-5.40) m/uL Hgb 11.3 L (11.4-16.0) gm/dL Potassium 5.6 H (3.5-5.1) mmol/L BUN 24 H (7-17) mg/dL BUN/Creatinine Ratio (12.00-20.00) Ratio Glucose 102 H (74-99) mg/dL AST 47 H (14-36) U/L Vitamin B12 1197.0 H (200.0-944.0) pg/mL Folate (4.40-31.00) ng/mL 05/13/23 05/14/23 Range/Units 18:11 03:54 RBC (3.80-5.40) m/uL Hgb (11.4-16.0) gm/dL Potassium (3.5-5.1) mmol/L BUN (7-17) mg/dL BUN/Creatinine Ratio 20.57 H (12.00-20.00) Ratio Glucose (74-99) mg/dL AST (14-36) U/L Vitamin B12 (200.0-944.0) pg/mL Folate 40.00 H (4.40-31.00) ng/mL Assessment and Plan Assessment: This is an 82-year-old woman who presented emergency department because of episode of confusion at home. While at home she said down since was not feeling well and was slumped down her eyes were open and were moving [id number] and she had left facial weakness and was confused. The episode lasted 5-10 minutes. No urinary or bowel incontinence or no jerk in of any extremities. Transient episode of confusion, slumped down and facial asymmetry. I an concerned about a seizure. Cannot rule TIA but feel low on differential. History of remote TIA in the past History of mild Alzheimer's (see's Dr. Christian--neurologist) Hypertension Borderline DM Plan: Pending MRI the brain with and without urgently. 2D echo is completed and pending to be read. I'll hold off starting antiepileptic drugs since the her seizure is suspected and not confirmed and even if it is a seizure this is a first episode. We'll start the patient has another episode of suspected seizure or if any images reveals increased risk for seizures. I ordered a routine EEG and the techs will not be available until this coming-up Tuesday. If patient is stable and all workup is negative can obtain EEG as outpatient. I resumed her home dose of aspirin and started on Lipitor 40 mg daily at bedtime for seconds to her prophylaxis Continue neuro checks Cardiac monitoring Consulted PT and OT We'll defer the rest of the medical management to primary team For DVT prophylaxis she patient on subcu heparin Upon discharge the patient will follow up with her neurologist as an outpatient Dr. Christian and has a coming up appointment towards the end of next month. The the daughter will was seek any cancellation appointments for closer appointment. Plan was discussed with the patient, her daughters and son. Also discussed the plan with primary attending. Time with Patient: Less than 30
--- NOTE | 2023-05-14 12:27 | MR ---
EXAMINATION TYPE: MR brain wo/w con DATE OF EXAM: 05/14/2023 11:50 AM CLINICAL INDICATION:Female, 82 years old with history of confusion. seizure; PHH, Confusion, seizure. COMPARISON: 05/13/2023 CT. TECHNIQUE: Multi planar, multi sequence imaging was performed through the brain including: T1, T2, In version recovery, susceptibility weighted imaging and gradient echo imaging and Diffusion weighted im aging. The patient was then given intravenous contrast and multi planar, T1 fat-saturation images wer e obtained. IV Contrast: 5.5 cc Gadavist FINDINGS: There is blooming artifact within the central rozina with which may correspond with low T1/T2 signal. No abnormal postcontrast enhancement within this region. Corresponding area on CT. Additiona l scattered microinfarct suggested with foci of blooming artifact in the parietal lobes bilaterally, and cerebellar hemisphere. Mild cerebral atrophy with proportional dilation of ventricular system. D iffusion-weighted imaging shows no evidence of restricted diffusion to suggest acute/subacute infarct . Intracranial arterial flow voids are maintained. Midline structures show no abnormality. Scattered foci of high T2 signal intensity are seen within the periventricular white matter. After administrati on of gadolinium, no abnormal enhancement is seen. The bone marrow signal is within normal limits. Paranasal sinuses and mastoid air cells: No significant paranasal sinus disease. Visualized orbits: Orbital contents are intact. IMPRESSION: 1. Blooming artifact within the central rozina with associated low T1-T2 signal. Correlate for minerali zation versus prior hemorrhage versus cavernoma 2. No evidence of intracranial mass, acute/subacute infarct, or abnormal enhancement. 3. Nonspecific white matter changes, likely related to small vessel ischemic disease.
--- NOTE | 2023-05-14 13:28 | P.HPIM ---
History of Present Illness H&P Date: 05/14/23 History of present illness; patient is a 82-year-old lady with past medical his tory significant for TIA, hyperlipidemia, hypertension who presented to the ER for episode of altered mental status and dizziness. Patient stated that she was all right this morning when feeling that she was sick and dizzy. Patient walked across the kitchen to sit on the chair in the next thing the family noticed that she was less responsive. Family noticed that the patient's eyes were rolling from [id number] and she was less responsive. Patient was also found to have a left sided facial droop. Patient was unable to reply to any questions. The whole episode lasted 5-10 minutes. Family did not notice any jerking movement of any extremity. There was no complain of any fecal or urine incontinence. There was no complain of tongue biting. Following this episode, patient became normal. Patient did have an urge defecate and following a bowel movement she said she felt much better. Because of this episode of reduced responsiveness brought to the ER Initial lab work done in the ER showed WBC 8, hemoglobin 11.3, platelet count 185, sodium 140, potassium 5 BUN 24, creatinine 0.62, glucose 102 UA negative for any infection EKG done in the ER showed heart rate of 67 , no ST segment elevation or depression seen, no T-wave inversions seen. CT head done showed no acute intracranial process, no acute bleed or mass effect CTA head and neck done showed no significant stenosis, aneurysm or thrombus in the intracranial circulation Patient admitted to internal medicine service REVIEW OF SYSTEMS: CONSTITUTIONAL: No fever, no malaise, no fatigue. HEENT: No recent visual problems or hearing problems. Denied any sore throat. CARDIOVASCULAR: No chest pain, orthopnea, PND, no palpitations, no syncope. PULMONARY: No shortness of breath, no cough, no hemoptysis. GASTROINTESTINAL: No diarrhea, no nausea, no vomiting, no abdominal pain. NEUROLOGICAL: As mentioned in HPI HEMATOLOGICAL: Denies any bleeding or petechiae. GENITOURINARY: Denies any burning micturition, frequency, or urgency. MUSCULOSKELETAL/RHEUMATOLOGICAL: Denies any joint pain, swelling, or any muscle pain. ENDOCRINE: Denies any polyuria or polydipsia. The rest of the 14-point review of systems is negative. PHYSICAL EXAMINATION: GENERAL: The patient is alert and oriented x3, not in any acute distress. Well developed, well nourished. HEENT: Pupils are round and equally reacting to light. EOMI. No scleral icterus. No conjunctival pallor. Normocephalic, atraumatic. No pharyngeal erythema. No th yromegaly. CARDIOVASCULAR: S1 and S2 present. No murmurs, rubs, or gallops. PULMONARY: Chest is clear to auscultation, no wheezing or crackles. ABDOMEN: Soft, nontender, nondistended, normoactive bowel sounds. No palpable organomegaly. MUSCULOSKELETAL: No joint swelling or deformity. EXTREMITIES: No cyanosis, clubbing, or pedal edema. NEUROLOGICAL: Gross neurological examination did not reveal any focal deficits. SKIN: No rashes. Assessment and plan TIA Acute metabolic encephalopathy Possible seizure Hypertension Hyperlipidemia Monitor vital signs Monitor CBC Monitor CMP Continue telemetry monitoring Continue neuro checks MRI brain ordered Ordered EEG Ordered 2-D echo Ordered lipid panel Ordered TSH, vitamin B12, folate Resume home meds Labs and medication were reviewed.. Continue same treatment. Continue with symptomatic treatment. Resume home medication. Monitor labs and vitals. DVT and GI prophylaxis. Further recommendations as per clinical course of the patient Dictation was produced using [employer] dictation software. please excuse any grammatical, word or spelling errors. Past Medical History Past Medical History: Diabetes Mellitus, Hypertension, Mitral Valve Prolapse (MVP) Additional Past Medical History / Comment(s): glaucoma, rheumatic fever History of Any Multi-Drug Resistant Organisms: None Reported Past Surgical History: Tubal Ligation Past Psychological History: No Psychological Hx Reported Smoking Status: Never smoker Past Alcohol Use History: Occasional Past Drug Use History: None Reported Medications and Allergies Home Medications Medication Instructions Recorded Confirmed Type Multivitamins, Thera [Multivitamin] 1 tab PO BID 03/02/16 05/13/23 History Aspirin [[place] Aspirin EC] 81 mg PO DAILY 05/13/23 05/13/23 History Atorvastatin [Lipitor] 20 mg PO DAILY 05/13/23 05/13/23 History Calcium Carbonate [Calcium] 600 mg PO DAILY 05/13/23 05/13/23 History Cholecalciferol [Vitamin D3 (25 25 mcg PO DAILY 05/13/23 05/13/23 History Mcg = 1000 Iu)] Cyanocobalamin (Vitamin B-12) 1,000 mcg PO DAILY 05/13/23 05/13/23 History [Vitamin B-12] Ginkgo Biloba [address] Extract [Ginkgo 125 mg PO DAILY 05/13/23 05/13/23 History Biloba] Losartan [Cozaar] 50 mg PO BID 05/13/23 05/13/23 History Allergies Allergy/AdvReac Type Severity Reaction Status Date / Time ciprofloxacin [From Cipro] AdvReac Possibly Verified 05/13/23 13:40 SJS levofloxacin [From Levaquin] AdvReac Possibly Verified 05/13/23 13:40 SJS Sulfa (Sulfonamide AdvReac Possibly Verified 05/13/23 13:40 Antibiotics) SJS Physical Exam Vitals: Vital Signs Temp Pulse Pulse Pulse Pulse Resp BP 05/14/23 07:40 98.8 F 67 17 05/14/23 02:00 98.0 F 69 16 05/13/23 18:02 98.7 F 70 19 05/13/23 16:39 70 18 181/74 05/13/23 11:47 64 145/85 05/13/23 10:24 66 77 60 05/13/23 10:21 97.9 F 56 L 18 144/81 BP BP BP Pulse Ox 05/14/23 07:40 139/74 99 05/14/23 02:00 127/77 95 05/13/23 18:02 168/77 97 05/13/23 16:39 97 05/13/23 11:47 97 05/13/23 10:24 144/87 144/83 132/75 05/13/23 10:21 99 Intake and Output 05/13/23 05/14/23 05/14/23 22:59 06:59 14:59 Other: Voiding Method Toilet # Voids 1 2 Weight 54.431 kg Results CBC & Chem 7: 05/13/23 12:42 05/13/23 11:27 Labs: Abnormal Lab Results - Last 24 Hours (Table) 05/13/23 05/13/23 05/13/23 Range/Units 11:27 12:42 18:11 RBC 3.72 L (3.80-5.40) m/uL Hgb 11.3 L (11.4-16.0) gm/dL Potassium 5.6 H (3.5-5.1) mmol/L BUN 24 H (7-17) mg/dL Glucose 102 H (74-99) mg/dL AST 47 H (14-36) U/L Vitamin B12 1197.0 H (200.0-944.0) pg/mL Folate (4.40-31.00) ng/mL 05/13/23 Range/Units 18:11 RBC (3.80-5.40) m/uL Hgb (11.4-16.0) gm/dL Potassium (3.5-5.1) mmol/L BUN (7-17) mg/dL Glucose (74-99) mg/dL AST (14-36) U/L Vitamin B12 (200.0-944.0) pg/mL Folate 40.00 H (4.40-31.00) ng/mL
--- NOTE | 2023-05-14 18:39 | CA ---
Transthoracic Echo Report Name: Martha Monge Age: 82 Gender: F : 1940 Exam Date: 05/14/2023 07:20 Exam Location: [facility] Ht (in): 59 Wt (lb): 120 Ordering Physician: Zay Burgess MD Attending/Referring Phys: [employer] Helper Yen Regalado RDCS Procedure CPT: Indications: stroke Cardiac Hx: Technical Quality: Good Contrast 1: Total Dose (mL): Contrast 2: Total Dose (mL): MEASUREMENTS (Male / Female) Normal Values 2D ECHO LV Diastolic Diameter PLAX 3.9 cm 4.2 - 5.9 / 3.9 - 5.3 cm LV Systolic Diameter PLAX 2.5 cm IVS Diastolic Thickness 1.0 cm 0.6 - 1.0 / 0.6 - 0.9 cm LVPW Diastolic Thickness 1.0 cm 0.6 - 1.0 / 0.6 - 0.9 cm LV Relative Wall Thickness 0.5 RV Internal Dim ED PLAX 3.1 cm LA Systolic Diameter LX 3.3 cm 3.0 - 4.0 / 2.7 - 3.8 cm LV Diastolic Volume MOD BP 36.0 cm??? 67 - 155 / 56 - 104 cm??? LV Systolic Volume MOD BP 15.7 cm??? 22 - 58 / 19 - 49 cm??? LV Ejection Fraction MOD BP 56.4 % >= 55 % LV Cardiac Index MOD BP 1004.4 cm???/min???m??? LV Diastolic Volume MOD 4C 35.1 cm??? LV Systolic Volume MOD 4C 14.3 cm??? LV Ejection Fraction MOD 4C 59.3 % LV Cardiac Index MOD 4C 1027.9 cm???/min???m??? LV Diastolic Length 4C 5.6 cm LV Systolic Length 4C 4.8 cm LV Diastolic Volume MOD 2C 38.0 cm??? LV Systolic Volume MOD 2C 17.8 cm??? LV Ejection Fraction MOD 2C 53.1 % LV Cardiac Index MOD 2C 998.8 cm???/min???m??? LV Diastolic Length 2C 5.9 cm LV Systolic Length 2C 4.9 cm LA Volume 50.5 cm??? 18 - 58 / 22 - 52 cm??? LA Volume Index 33.3 cm???/m??? 16 - 28 cm???/m??? M-MODE Aortic Root Diameter MM 2.2 cm MV E Point Septal Separation 0.3 cm AV Cusp Separation MM 1.7 cm DOPPLER AV Peak Velocity 93.0 cm/s AV Peak Gradient 3.5 mmHg MV Area PHT 3.1 cm??? Mitral E Point Velocity 65.5 cm/s Mitral A Point Velocity 89.6 cm/s Mitral E to A Ratio 0.7 MV Deceleration Time 246.9 ms MV E' Velocity 5.6 cm/s Mitral E to MV E' Ratio 11.7 TR Peak Velocity 272.8 cm/s TR Peak Gradient 29.8 mmHg Right Ventricular Systolic Press 35.0 mmHg FINDINGS Left Ventricle Left ventricular ejection fraction is estimated at 55-60 %. Left ventricular cavity size normal. Mildly increased septal wall thickness. Right Ventricle Normal right ventricular size. Mild pulmonary hypertension. Right Atrium Normal right atrial size. Left Atrium Mildly increased left atrial volume. Mitral Valve Structurally normal mitral valve. No mitral stenosis, regurgitation or prolapse. Aortic Valve Trileaflet aortic valve. No aortic valve stenosis or regurgitation. Tricuspid Valve Structurally normal tricuspid valve. Mild tricuspid regurgitation. Pulmonic Valve Structurally normal pulmonic valve. No pulmonic regurgitation. Pericardium No pericardial effusion. Aorta Normal size aortic root and proximal ascending aorta. CONCLUSIONS EF estimated at 55-60% Normal LV size and systolic function. No obvious regional wall motion abnormality Mildly increased septal wall thickness Mild left atrial dilatation dilatation No significant valvular dysfunction RVSP estimated 35 mmHg Previewed by: Dr Merrill Mobley (Electronically Signed) Final Date: 14 May 2023 18:38
== END 2023-05-14 14:29 | disposition home or self-care (01) ==
LOC: EC 09:56 → 6NMEDSUR 14:56
PROVIDERS: ADMIT Hospitalist; ATTEND Hospitalist
DX: G93.41 Metabolic encephalopathy (principal); E11.9 Type 2 diabetes mellitus without complications; I10 Essential (primary) hypertension; G30.9 Alzheimer's disease, unspecified; F02.A0 Dementia in other diseases classified elsewhere, mild, without behavioral disturbance, psychotic disturbance, mood disturbance, and anxiety; E78.5 Hyperlipidemia, unspecified; Z86.73 Personal history of transient ischemic attack (TIA), and cerebral infarction without residual deficits; Z79.82 Long term (current) use of aspirin; Z79.899 Other long term (current) drug therapy; Z88.1 Allergy status to other antibiotic agents; Z88.2 Allergy status to sulfonamides
CPT/HCPCS: 96372 ×2; 96360; 99285; 36415; 93306; 97161; 80061; 80053; 80048; 84443; 82607; 82140; 82746; 83605; 83735; 84484; 85025; 85610; 85730; 81003; 70496; 70450; 70498; 70553; G0378 ×2; J1644 ×2; Q9967; A9585

== ENCOUNTER → 2023-05-25 | Outpatient (CLI) | payer MEDICARE ==
[~2023-05-25] MED LIST: SODIUM CHLORIDE 0.9% 500 ML 500 ML in EMPTY BAG 1 BAG IV PRN; ZOLEDRONIC ACID 5 MG in SODIUM CHLORIDE 0.9% 100 ML IV NR
[2023-05-25 12:39] VITALS: BP 156/73; PULSE 86; RESP 16; TEMP 98.2
== END ==
LOC: PROCWHC3 11:43
PROVIDERS: ATTEND Internal Medicine
DX: M81.0 Age-related osteoporosis without current pathological fracture (principal)
CPT/HCPCS: 96365; J3489

== ENCOUNTER → 2023-06-01 | Outpatient (CLI) | payer MEDICARE ==
--- NOTE | 2023-06-02 00:56 | EEG ---
ELECTROENCEPHALOGRAM REPORT CLINICAL HISTORY: This is an 82-year-old woman with an episode of confusion. Video EEG is obtained to evaluate for seizure epileptiform activity. RELEVANT MEDICATION: The patient is not on any antiepileptic drugs. DESCRIPTION: Wakefulness is obtained. During awake state, the posterior-dominant rhythm consists of [id number] voltage of 10-11 hertz activity. There is no physiological stage 2 sleep architecture. There is no focal slowing. Interictal and ictal is none. ACTIVATION PROCEDURE: Photic stimulation did not evoke a posterior driving response. There is no abnormality during the photic stimulation. Hyperventilation is not performed. CLINICAL INTERPRETATION: This is a normal routine EEG. There is no focal slowing, epileptiform discharge, or seizure on the EEG. A normal routine EEG, does not rule out any underlying epilepsy. Clinical correlation is recommended. WESLEY / HOLLIN: [id number] / MTDD
== END ==
LOC: NEUROMAIN 12:45
PROVIDERS: ATTEND Student in an Organized Health Care Education/Training Program
DX: R56.9 Unspecified convulsions (principal); Z88.1 Allergy status to other antibiotic agents; Z88.2 Allergy status to sulfonamides; Z79.82 Long term (current) use of aspirin
CPT/HCPCS: 95816

== ENCOUNTER → 2024-04-16 | Outpatient (CLI) | payer MEDICARE ==
--- NOTE | 2024-04-16 15:26 | XR ---
EXAMINATION TYPE: XR knee limited LT DATE OF EXAM: 04/16/2024 COMPARISON: NONE CLINICAL INDICATION: Female, 83 years old with history of M25.562 PAIN IN LEFT KNEE; TECHNIQUE: 2 views FINDINGS: Trace knee joint effusion. Extensor mechanism is intact. There is minimal marginal spurring patellofemoral and medial compartments. No acute fracture, subluxation, dislocation. IMPRESSION: Some minimal degenerative spurring in the medial and patellofemoral compartments. Trace knee joint ef fusion is nonspecific. No acute osseous abnormality seen. [facility], , 04/16/2024 3:24 PM
== END | disposition home or self-care (01) ==
LOC: RADXRMAIN 14:56
PROVIDERS: ATTEND Internal Medicine
DX: M17.12 Unilateral primary osteoarthritis, left knee (principal); M25.462 Effusion, left knee